=== PATIENT | female | born 1965 | race Caucasian/White ===

== ENCOUNTER → 2018-02-10 14:44 | Outpatient (CLI) | payer OTHER, SELFPAY ==
--- NOTE | 2018-02-10 | DI.MRI.S_ITS ---
PROCEDURE: MR KNEE LT WO CON INDICATIONS: CHRONIC LEFT KNEE PAIN TECHNIQUE: Noncontrast sagittal PD fast spin echo and T2 fast spin echo with fat saturation, sagittal 3-D FLASH with fat saturation; coronal T1 spin echo and PD fast spin echo with fat saturation, and axial PD fast spin echo with fat saturation through the knee. COMPARISON: [facility], CR, XR KNEE 3 VIEWS LEFT, 05/27/2015, 10:56. [facility], MR, MR KNEE LEFT WITHOUT CONTRAST, 07/06/2015, 15:21. [facility], MR, MR KNEE LEFT WITHOUT CONTRAST, 09/05/2015, 13:47. [facility] [place], CR, XR KNEE ARTHRITIC SERIES BI, 01/28/2018, 8:14. FINDINGS: Image quality: Excellent. Menisci: The medial and lateral menisci demonstrate normal morphology and internal signal. The meniscal root ligaments appear intact. Cruciate ligaments: The anterior and posterior cruciate ligaments appear intact. Medial structures: The medial collateral ligament appears intact. The posterior oblique ligament, semimembranosus tendon insertions, oblique popliteal ligament, and meniscocapsular junction appear intact. Visualized portions of the pes anserinus tendons appear normal. No abnormal bursal fluid. Lateral structures: The lateral collateral ligament, long and short heads of the biceps femoris tendon appear intact. The popliteus tendon appears normal; the popliteofibular ligament appears intact. The posterosuperior and anteroinferior popliteomeniscal fascicles appear intact. The arcuate and fabellofibular ligaments appear intact, on either side of the lateral inferior geniculate artery. Iliotibial band appears normal. Anterior structures: The quadriceps and patellar tendons appear intact. Patellar alignment is normal. No femoral trochlear dysplasia or ventral trochlear prominence. No edema in the infrapatellar fat pad. Bones and cartilage: No bone marrow contusions or fractures. There is a 6 x 5 mm full-thickness cartilage defect in the weightbearing portion of the lateral femoral condyle, which is new since 09/05/2015. Joint space: There is moderate knee joint effusion. No Ruggiero's cyst. Normal appearing synovial plicae are incidentally noted. IMPRESSION: 1. A 6 x 5 mm fullthicknes cartilage defect in the weightbearing portion of the lateral femoral condyle. 2. Moderate degree fusion. Dictated by: Maximo Chavez M.D. on 02/10/2018 at 15:21 Approved by: Maximo Chavez M.D. on 02/10/2018 at 15:31
== END ==
PROVIDERS: Visit Provider Orthopaedic Surgery
DX: M25.562 Pain in left knee (principal); G89.29 Other chronic pain; M25.462 Effusion, left knee; M94.262 Chondromalacia, left knee
CPT/HCPCS: 73721

== ENCOUNTER 2018-03-31 10:41 | Day surgery (SDC) | payer OTHER, SELFPAY ==
[2018-03-21 13:46] VITALS: BMI 48.5
[2018-03-31] VITALS (9 sets, daily range): BP systolic 102–118; BP diastolic 60–72; PULSE 74–93; RESP 10–16; TEMP 36.1–36.6; O2SAT 94–99; BMI 48.5
--- NOTE | 2018-03-31 | DI.RAD.S_ITS ---
PROCEDURE: XR LUMBAR SPINE 2-3V INDICATIONS: L4-5, L5-S1 MICRODISCECTOMY TECHNIQUE: 3 views of the lumbar spine were acquired. COMPARISON: None. FINDINGS: 3 spot fluoroscopic intraoperative views demonstrating surgical instrument with tip projecting at the L4-L5 at L5-S1 level. Dictated by: Josh Perry M.D. on 03/31/2018 at 14:22 Approved by: Josh Perry M.D. on 03/31/2018 at 14:23
[2018-03-31] MEDS: CEFAZOLIN 2 GM/100 ML FROZ.PIGGY IV (12:15)
--- NOTE | 2018-03-31 12:53 | SUR.OPER ---
Prone on spine table, head in foam head support, padded chest and pelvic supports, gel pad at knees, lower legs supported by pillows; nipples, genitalia and toes free of pressure, arms secured on foam padded arm boards at <90 degrees abduction. Tape over blanket at thigh secured to table.
[2018-03-31] MEDS: BUPIVACAINE 0.25% W/ EPI VIAL 30 ML INJ (13:03)
[2018-03-31] MEDS: methylPREDNISolone acet DEPO 40 MG/ML VIAL INJ (13:05)
--- NOTE | 2018-03-31 13:29 | PM.OP.1 ---
Operative Date/Time/Diagnoses Date of procedure: 03/31/18 Time of procedure: 12:29 Pre-op diagnosis: 1. L4-5, L5-S1 spinal stenosis 2. L4-5, L5-S1 disc herniation with radiculopathy Post-op diagnosis: same Procedure & Clinicians Procedure: 1. L4-5 hemilaminectomy with microdiscectomy 2. L5-S1 hemilaminectomy for decompression 3. Utilization of microsurgical technique and operating microscope Same procedure as scheduled: Yes Indications: Patient has been having chronic back pain and worsening lumbar radiculopathy. Patient failed multiple conservative management with worsening pain weakness and numbness in her lower extremity. Patient has been having difficulty performing activity of daily living. After discussing risks benefits of treatment options, patient elected proceed with surgery. Patient's procedure was originally scheduled for the right side. On the day of the surgery, patient states her left-sided pain is more significant. And the procedure was modified to accommodate patient's current symptom. Surgeon: Yaniv Brown [employer] Specialist: Krupa Summers Click Yes if Unassisted: No Anesthesia Type: General Operative Notes Closure Type: primary Specimen(s): none sent Estimated Blood Loss (mL): 10 Blood products transfused: none Procedure in detail: Patient was seen in the preoperative area. Risks and benefits of the surgery was discussed with the patient. Informed consent was obtained from the patient and placed in the chart. Surgical site was marked. Patient was taken to the operative room. General anesthesia was administered. Prophylactic antibiotic was given to the patient less than 30 min before the incision was made. Patient was placed into a prone position on the Miguel table. Patient's back was then prepped and draped in the sterile fashion. Time-out was performed at this time. Using AP and lateral C-arm imaging the interval between L4-5 L5-S1 was identified and marked on patient's back. A 1 inch incision 1 in from midline was made on the left side. The fascia was incised in line with skin incision. Globus MARS retractors was placed inside the incision and docked onto the L4 and L5 lamina. Using microsurgical technique and operating microscope, a L4 and L5 hemilaminectomy was performed using a Kerrison rongeur. Liagamentum flavum was resected at the site of the laminotomy. The disc space at L4-5, L5-S1 was identified. Microdiscectomy was performed by incising the annulus with #11 blade. Microcurettes and pituitary was used to removed herniated disc fragments of disc from the epidural space. After the microdiskectomy was completed, the area medial lateral superior and inferior to the area of the microdiskectomy was inspected and explored using a micro curette. No other impinging structure was identified. Patient was also found have significant epidural lipomatosis causing additional spinal stenosis. The lipomatosis was also removed and decompressed during the process of decompression at both levels. The wound was then irrigated with sterile normal saline. 40 mg Depo-Medrol was placed into the epidural space. The deep fascia was closed with 1-0 Vicryl. The subcutaneous tissue was closed with 2-0 Vicryl. The skin was closed with 4-0 Monocryl. Patient tolerated the procedure well. There were no complications. Patient was transferred recovery room in stable condition. Complications: none Condition: stable Disposition: PACU Plan for aftercare: Discharge to home
--- NOTE | 2018-03-31 13:36 | P.OP_ITS ---
Operative Date/Time/Diagnoses Date of procedure: 03/31/18 Time of procedure: 12:29 Pre-op diagnosis: 1. L4-5, L5-S1 spinal stenosis 2. L4-5, L5-S1 disc herniation with radiculopathy Post-op diagnosis: same Procedure & Clinicians Procedure: 1. L4-5 hemilaminectomy with microdiscectomy 2. L5-S1 hemilaminectomy for decompression 3. Utilization of microsurgical technique and operating microscope Same procedure as scheduled: Yes Indications: Patient has been having chronic back pain and worsening lumbar radiculopathy. Patient failed multiple conservative management with worsening pain weakness and numbness in her lower extremity. Patient has been having difficulty performing activity of daily living. After discussing risks benefits of treatment options, patient elected proceed with surgery. Patient's procedure was originally scheduled for the right side. On the day of the surgery, patient states her left-sided pain is more significant. And the procedure was modified to accommodate patient's current symptom. Surgeon: Yaniv Brown Engineering Clerk: Krupa Summers Click Yes if Unassisted: No Anesthesia Type: General Operative Notes Closure Type: primary Specimen(s): none sent Estimated Blood Loss (mL): 10 Blood products transfused: none Procedure in detail: Patient was seen in the preoperative area. Risks and benefits of the surgery was discussed with the patient. Informed consent was obtained from the patient and placed in the chart. Surgical site was marked. Patient was taken to the operative room. General anesthesia was administered. Prophylactic antibiotic was given to the patient less than 30 min before the incision was made. Patient was placed into a prone position on the Miguel table. Patient's back was then prepped and draped in the sterile fashion. Time- out was performed at this time. Using AP and lateral C-arm imaging the interval between L4-5 L5-S1 was identified and marked on patient's back. A 1 inch incision 1 in from midline was made on the left side. The fascia was incised in line with skin incision. Globus MARS retractors was placed inside the incision and docked onto the L4 and L5 lamina. Using microsurgical technique and operating microscope, a L4 and L5 hemilaminectomy was performed using a Kerrison rongeur. Liagamentum flavum was resected at the site of the laminotomy. The disc space at L4-5, L5- S1 was identified. Microdiscectomy was performed by incising the annulus with # 11 blade. Microcurettes and pituitary was used to removed herniated disc fragments of disc from the epidural space. After the microdiskectomy was completed, the area medial lateral superior and inferior to the area of the microdiskectomy was inspected and explored using a micro curette. No other impinging structure was identified. Patient was also found have significant epidural lipomatosis causing additional spinal stenosis. The lipomatosis was also removed and decompressed during the process of decompression at both levels. The wound was then irrigated with sterile normal saline. 40 mg Depo-Medrol was placed into the epidural space. The deep fascia was closed with 1-0 Vicryl. The subcutaneous tissue was closed with 2-0 Vicryl. The skin was closed with 4- 0 Monocryl. Patient tolerated the procedure well. There were no complications. Patient was transferred recovery room in stable condition. Complications: none Condition: stable Disposition: PACU Plan for aftercare: Discharge to home
[2018-03-31] MEDS: fentaNYL 100 MCG/2 ML INJ 50 MCG IV ×2 (13:59→14:07)
== END 2018-03-31 14:54 | disposition home or self-care (01) ==
PROVIDERS: Visit Provider Orthopaedic Surgery Orthopaedic Surgery of the Spine
PROC: (CPT 63030; principal; 2018-03-31 12:15)
DX: M51.16 Intervertebral disc disorders with radiculopathy, lumbar region (principal); E66.9 Obesity, unspecified; M79.7 Fibromyalgia; D64.9 Anemia, unspecified; E88.2 Lipomatosis, not elsewhere classified
CPT/HCPCS: 63030; 63035; 72100; 76001; J0330; J0690; J1030; J1100; J2250; J2405; J2704; J3010

== ENCOUNTER → 2018-06-21 15:49 | Outpatient (CLI) | payer OTHER, SELFPAY ==
--- NOTE | 2018-06-21 | DI.MRI.S_ITS ---
PROCEDURE: MR LUMBAR SPINE WO CON INDICATIONS: Low back and bilateral flank pain TECHNIQUE: Noncontrast sagittal T1 spin echo and T2 fast echo, sagittal STIR, axial T1 and T2 fast spin echo through the lumbar spine. In cases with scoliosis, additional coronal T2 fast spin echo may be performed. COMPARISON: [facility] [place], CR, XR LUMBAR SPINE 2 OR 3 VIEWS, 06/06/2018, 14:22. FINDINGS: Image quality: Excellent. Alignment and Curvature: There is trace retrolisthesis of L4 on L5. Bone Marrow: Marrow is of normal overall signal. No acute vertebral body compression fractures. Spinal Cord: Conus medullaris terminates at the L1-L2 level. Visualized cord demonstrates normal signal and size. Paraspinous Soft Tissues: No paravertebral masses. Discs: Moderate to severe desiccation is present L4-5, L5-S1, minimal to mild throughout the remainder of the lumbar spine. L1-L2: Minimal disc bulge without spinal stenosis. No foraminal narrowing. Mild facet and ligamentum flavum hypertrophy. Mild epidural lipomatosis. L2-L3: Minimal disc bulge with minimal canal narrowing. Mild left foraminal narrowing with facet and ligamentum flavum hypertrophy. Mild epidural lipomatosis. L3-L4: Mild disc bulge with mild spinal stenosis. Minimal bilateral foraminal narrowing with facet and ligamentum flavum hypertrophy. Mild epidural lipomatosis. L4-L5: Mild disc bulge with mild spinal stenosis. Minimal narrowing to the subarticular recesses bilaterally. Facet and ligamentum flavum hypertrophy are present. L5-S1: Mild disc bulge with mild to moderate spinal stenosis. Moderate left foraminal narrowing. Facet and ligamentum flavum hypertrophy are present. IMPRESSION: 1. Multilevel disc bulges. 2. Multilevel spinal stenosis overall mild to moderate posterior L5-S1. Spinal stenosis is secondary to facet/ligamentum flavum arthropathy with contribute effect of epidural lipomatosis. 3. Multilevel foraminal narrowing most prominent L5-S1 secondary to facet arthropathy. Dictated by: Ana Rosa Nieto M.D. on 06/21/2018 at 16:41 Approved by: Ana Rosa Nieto M.D. on 06/21/2018 at 16:49
== END ==
PROVIDERS: Visit Provider Physician Assistant
DX: M51.16 Intervertebral disc disorders with radiculopathy, lumbar region (principal); M51.17 Intervertebral disc disorders with radiculopathy, lumbosacral region; M48.061 Spinal stenosis, lumbar region without neurogenic claudication; M48.07 Spinal stenosis, lumbosacral region; M47.26 Other spondylosis with radiculopathy, lumbar region; M47.27 Other spondylosis with radiculopathy, lumbosacral region; E88.2 Lipomatosis, not elsewhere classified
CPT/HCPCS: 72148

== ENCOUNTER → 2018-11-08 08:26 | Outpatient (CLI) | payer OTHER, SELFPAY ==
[2018-11-08 09:48] LABS: Hematocrit 39.7 % (36-46); Hemoglobin 13.6 g/dL (12.0-16.0); Mean Corpuscular HGB Conc 34.3 % (30-36); Mean Corpuscular Hemoglobin 32.4 PG (26-34); Mean Corpuscular Volume 94.5 fL (80-100); Platelet Count 225 X10^3/uL (150-400); Red Cell Distribution Width 13.1 % (11.6-14.8); White Blood Cell Count 4.9 X10^3/uL (4.5-11.0)
[2018-11-08 12:11] LABS: BUN Creatinine Ratio 12.9 (6-22); Blood Urea Nitrogen 9 mg/dL (7-17); Calcium 9.4 mg/dL (8.4-10.2); Carbon Dioxide 27 mmol/L (22-32); Chloride 102 mmol/L (98-107); Estimated Glomerular Filt Rate > 60.0 mL/min (>60); Glucose 86 mg/dL (70-100); HEMOLYSIS < 15 (0-50); Potassium 4.5 mmol/L (3.4-5.1); Sodium 138 mmol/L (137-145)
== END ==
PROVIDERS: Visit Provider Orthopaedic Surgery Orthopaedic Surgery of the Spine
DX: Z01.818 Encounter for other preprocedural examination (principal)
CPT/HCPCS: 36415; 80048; 85027; 93005; 93010

== ENCOUNTER 2018-11-16 13:43 | Day surgery (SDC) | payer OTHER, SELFPAY ==
[2018-11-09 12:28] VITALS: BMI 48.5
[2018-11-16] VITALS (7 sets, daily range): BP systolic 107–116; BP diastolic 46–66; PULSE 75–96; RESP 10–16; TEMP 36.7–37.2; O2SAT 97–100; BMI 48.5
--- NOTE | 2018-11-16 | DI.RAD.S_ITS ---
PROCEDURE: XR LUMBAR SPINE 2-3V INDICATIONS: Microdiscectomy TECHNIQUE: 3 intraoperative views of the lumbar spine were acquired. COMPARISON: None. FINDINGS: Intraoperative views of the lumbar spine are obtained. IMPRESSION: Intraoperative views obtained of the lumbar spine. Dictated by: Gregory Martinez M.D. on 11/16/2018 at 18:44 Approved by: Gregory Martinez M.D. on 11/16/2018 at 18:46
[2018-11-16] MEDS: LACTATED RINGERS 1,000 ML 42 ML IV (14:41)
[2018-11-16] MEDS: CEFAZOLIN 2 GM/100 ML FROZ.PIGGY IV (17:12)
[2018-11-16] MEDS: BUPIVACAINE 0.25% W/ EPI 30 ML VIAL INJ (17:46)
[2018-11-16] MEDS: methylPREDNISolone acet DEPO 40 MG/ML VIAL IM (17:47)
--- NOTE | 2018-11-16 18:08 | PM.OP.1 ---
Operative Date/Time/Diagnoses Date of procedure: 11/16/18 Time of procedure: 16:09 Pre-op diagnosis: 1. L5-S1 spinal stenosis 2. L5-S1 disc herniation with radiculopathy Post-op diagnosis: same Procedure & Clinicians Procedure: 1. L5-S1 laminectomy with partial facetectomy for decompression 2. Utilization of microsurgical technique and operating microscope Same procedure as scheduled: Yes Indications: Patient has been having chronic back pain and worsening lumbar radiculopathy. Patient failed multiple conservative management with worsening pain weakness and numbness in her lower extremity. Patient has been having difficulty performing activity of daily living. After discussing risks benefits of treatment options, patient elected proceed with surgery. Surgeon: Yaniv Brwon Certified Court/Medical Interpreter: Krupa Summers Click Yes if Unassisted: No Anesthesia Type: General Operative Notes Closure Type: primary Specimen(s): none sent Estimated Blood Loss (mL): 5 Blood products transfused: none Procedure in detail: Patient was seen in the preoperative area. Risks and benefits of the surgery was discussed with the patient. Informed consent was obtained from the patient and placed in the chart. Surgical site was marked. Patient was taken to the operative room. General anesthesia was administered. Prophylactic antibiotic was given to the patient less than 30 min before the incision was made. Patient was placed into a prone position on the Miguel table. Patient's back was then prepped and draped in the sterile fashion. Time-out was performed at this time. Using AP and lateral C-arm imaging the interval between L5-S1 was identified and marked on patient's back. A 1 inch incision 1 in from midline was made on the left side. The fascia was incised in line with skin incision. Globus MARS retractors was placed inside the incision and docked onto the L5 lamina. Using microsurgical technique and operating microscope, a L5-S1 laminectomy was performed using a Kerrison rongeur. Liagamentum flavum was resected at the site of the laminectotmy. Part of the L5-S1 facet was undercut to further decompress the lateral recess at L5-S1 level. After the laminectomy was completed, the area medial lateral superior and inferior to the area of the laminectomy was inspected and explored using a micro curette. No other impinging structure was identified. The wound was then irrigated with sterile normal saline. 40 mg Depo-Medrol was placed into the epidural space. The deep fascia was closed with 1-0 Vicryl. The subcutaneous tissue was closed with 2-0 Vicryl. The skin was closed with Skin robert. Patient tolerated the procedure well. There were no complications. Patient was transferred recovery room in stable condition. Complications: none Condition: stable Disposition: PACU Plan for aftercare: Discharge to home
== END 2018-11-16 19:11 | disposition home or self-care (01) ==
PROVIDERS: PCP Family Medicine; Visit Provider Orthopaedic Surgery Orthopaedic Surgery of the Spine
PROC: (CPT 63047; principal; 2018-11-16 15:45)
DX: M48.061 Spinal stenosis, lumbar region without neurogenic claudication (principal); M51.16 Intervertebral disc disorders with radiculopathy, lumbar region; E66.9 Obesity, unspecified; M79.7 Fibromyalgia; D64.9 Anemia, unspecified; Z68.42 Body mass index [BMI] 45.0-49.9, adult
CPT/HCPCS: 63047; 72100; 76000; J0690; J1030; J1100; J2405; J2704; J3010

== ENCOUNTER → 2019-01-02 07:41 | Outpatient (CLI) | payer OTHER, SELFPAY ==
--- NOTE | 2019-01-02 | DI.MRI.S_ITS ---
PROCEDURE: MR LUMBAR SPINE WO CON INDICATIONS: LOW BACK PAIN TECHNIQUE: Noncontrast sagittal T1 spin echo and T2 fast echo, sagittal STIR, axial T1 and T2 fast spin echo through the lumbar spine. In cases with scoliosis, additional coronal T2 fast spin echo may be performed. COMPARISON: [facility], MR, MR LUMBAR SPINE WO CON, 06/21/2018, 15:58. FINDINGS: Image quality: Excellent. Alignment and Curvature: There is normal bony alignment. Bone Marrow: Marrow is of normal overall signal. No acute vertebral body compression fractures. Spinal Cord: Conus medullaris terminates at the L1 level. Visualized cord demonstrates normal signal and size. Paraspinous Soft Tissues: No paravertebral masses. There is nonspecific, dependent posterior subcutaneous soft tissue edema from level of L2-L5 L1-L2: Normal appearance. L2-L3: Normal appearance. L3-L4: Normal appearance. L4-L5: Small central disc protrusion bilateral facet arthropathy. No high-grade canal stenosis. Partial effacement of both lateral recesses although right slightly greater than left. This is slightly progressed since the prior study, and there is mild compression of the descending right L5 nerve root. L5-S1: Broad-based posterior disc bulge and facet arthropathy. Mild canal narrowing. Lateral recesses appear grossly patent. Moderate left foraminal narrowing which is grossly unchanged. IMPRESSION: Lower lumbar spondylosis and facet arthropathy. No high-grade canal stenosis. Asymmetric mild partial effacement of the L4-L5 lateral recesses, right slightly greater than left which appears slightly progressed since the prior study. Moderate left L5-S1 foraminal stenosis as before. Dictated by: Josh Perry M.D. on 01/02/2019 at 13:20 Approved by: Josh Perry M.D. on 01/02/2019 at 13:28
== END ==
PROVIDERS: PCP Family Medicine; Visit Provider Orthopaedic Surgery Orthopaedic Surgery of the Spine
DX: M54.5 Low back pain (principal); M47.816 Spondylosis without myelopathy or radiculopathy, lumbar region; M48.07 Spinal stenosis, lumbosacral region
CPT/HCPCS: 72148

== ENCOUNTER → 2020-11-26 07:15 | Outpatient (CLI) | payer OTHER, SELFPAY ==
--- NOTE | 2020-11-26 | DI.MRI.S_ITS ---
PROCEDURE: MR LUMBAR SPINE WO CON INDICATIONS: Low back pain TECHNIQUE: Noncontrast sagittal T1 spin echo and T2 fast echo, sagittal STIR, axial T1 and T2 fast spin echo through the lumbar spine. In cases with scoliosis, additional coronal T2 fast spin echo may be performed. COMPARISON: [facility], MR, MR LUMBAR SPINE WO CON, 01/02/2019, 7:57. FINDINGS: Image quality: Excellent. Alignment and Curvature: There is normal bony alignment. Bone Marrow: Marrow is of normal overall signal. No acute vertebral body compression fractures. Spinal Cord: Conus medullaris terminates at the L1 level. Visualized cord demonstrates normal signal. There is an overall appearance of congenital narrowing. Paraspinous Soft Tissues: No paravertebral masses. Discs: Moderate desiccation is present at L4-5, L5-S1. L1-L2: No disc bulge or foraminal narrowing. Mild spinal stenosis with facet and ligamentum flavum hypertrophy. Minimal epidural lipomatosis. No interval change. L2-L3: No disc bulge. Questionable minimal left foraminal narrowing, unchanged. Facet and ligamentum flavum hypertrophy as well as epidural lipomatosis are present. Mild spinal stenosis. L3-L4: Minimal disc bulge. Questionable minimal left foraminal narrowing, unchanged. Facet and ligamentum flavum hypertrophy as well as epidural lipomatosis are present. Moderate spinal stenosis, slightly progressive. L4-L5: Minimal disc bulge. Previous protrusion is not well seen. Questionable minimal left foraminal narrowing, unchanged. Facet and ligamentum flavum hypertrophy as well as epidural lipomatosis are present. Moderate spinal stenosis, slightly progressive. L5-S1: Minimal disc bulge. Previous protrusion is not well seen. Moderate left foraminal narrowing, unchanged. Facet and ligamentum flavum hypertrophy as well as epidural lipomatosis are present. Mild to moderate spinal stenosis, slightly progressive. IMPRESSION: 1. Multilevel degenerative changes with slight interval progression, as above. 2. 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 Dictated by: Ana Rosa Nieto M.D. on 11/26/2020 at 16:52 Approved by: Ana Rosa Nieto M.D. on 11/26/2020 at 17:14
== END ==
PROVIDERS: PCP Student in an Organized Health Care Education/Training Program; Referring Provider Student in an Organized Health Care Education/Training Program; Visit Provider Student in an Organized Health Care Education/Training Program
DX: M51.26 Other intervertebral disc displacement, lumbar region (principal); M48.061 Spinal stenosis, lumbar region without neurogenic claudication
CPT/HCPCS: 72148

== ENCOUNTER 2021-01-04 15:00 | Emergency (ER) | payer OTHER, SELFPAY ==
[2021-01-04 15:25] VITALS: BP 123/65; PULSE 84; RESP 18; TEMP 36.2; O2SAT 98; BMI 53.1
--- NOTE | 2021-01-04 15:39 | DI.RAD.S_ITS ---
PROCEDURE: XR CHEST 1V INDICATIONS: chest pain TECHNIQUE: One view of the chest was acquired. COMPARISON: [facility], , CHEST 2 VIEW, 07/28/2008, 20:00. FINDINGS: Surgical changes and devices: None. Lungs and pleura: Lungs are clear. No pleural effusions or pneumothorax. Mediastinum: Mediastinal contours appear normal. Heart size is normal. Bones and chest wall: No suspicious bony lesions. Overlying soft tissues appear unremarkable. IMPRESSION: Normal for age, source of current chest pain symptoms is not seen. Dictated by: Ronny Mac M.D. on 01/04/2021 at 15:26 Approved by: Ronny Mac M.D. on 01/04/2021 at 15:27
[2021-01-04 16:32] LABS: Add Manual Diff / Slide Review NO; Basophils Absolute Auto 100 /uL (0-100); Basophils Percent Auto 1.5 % (0-2); Eosinophils Absolute Auto 200 /uL (0-450); Eosinophils Percent Auto 3.2 % (2-4); Hematocrit 37.2 % (36-46); Hemoglobin 12.5 g/dL (12.0-16.0); Lymphocytes Absolute Auto 1500 /uL (1100-4500); Lymphocytes Percent Auto 26.3 % (25-40); Mean Corpuscular HGB Conc 33.5 % (30-36); Mean Corpuscular Hemoglobin 31.8 PG (26-34); Mean Corpuscular Volume 95.1 fL (80-100); Monocytes Absolute Auto 500 /uL (0-900); Monocytes Percent Auto 8.8 % (3-14); Neutrophils Absolute Auto 3400 /uL (1500-7000); Neutrophils Percent Auto 60.2 % (50-75); Platelet Count 243 X10^3/uL (150-400); Red Blood Cell Count 3.91 X10^6/uL (4.0-5.2); Red Cell Distribution Width 13.9 % (11.6-14.8); White Blood Cell Count 5.6 X10^3/uL (4.5-11.0)
[2021-01-04 16:43] LABS: Alanine Aminotransferase 18 IU/L (<35); Albumin 4.2 g/dL (3.5-5.0); Albumin Globulin Ratio 1.3 (1.0-2.8); Alkaline Phosphatase 79 U/L (38-126); Aspartate Aminotransferase 27 IU/L (14-36); BUN Creatinine Ratio 22.4 (6-22); Bilirubin Total 0.8 mg/dL (0.2-1.3); Blood Urea Nitrogen 13 mg/dL (7-17); Calcium 9.4 mg/dL (8.4-10.2); Carbon Dioxide 28 mmol/L (22-32); Chloride 104 mmol/L (98-107); Creatine Kinase 117 U/L (30-135); Estimated Glomerular Filt Rate > 60.0 mL/min (>60); Globulin 3.2 g/dL (1.7-4.1); Glucose 87 mg/dL (70-100); HEMOLYSIS 34 (0-50); Lipase 24 U/L (23-300); Potassium 4.1 mmol/L (3.4-5.1); Sodium 137 mmol/L (137-145); Total Protein 7.4 g/dL (6.3-8.2)
--- NOTE | 2021-01-04 16:50 | ED_ITS ---
HPI - Extremity Problem General Chief complaint: Extremity Problem,Nontraumatic Stated complaint: swollen feet and legs/ painful Time Seen by Provider: 01/04/21 16:20 Source: patient Mode of arrival: Ambulatory Limitations: no limitations History of Present Illness HPI Narrative: Patient is a 55-year-old female here for evaluation of bilateral with left being greater than right swollen feet and ankles. She states this is been going on for the past couple days. She is not having any chest pain or shortness of breath. Has never had anything like this in the past. She states that they are swollen all day long even in the morning after she has been lying flat. She denies any trauma. She started noticing swelling when she was having difficulty putting on a pair shoes that she normally wears. No fevers. Has not tried anything for symptoms prior to arrival. Related Data Home Medications Medication Instructions Recorded Confirmed CHOLECALCIFEROL (VITAMIN D3) 1,000 mg PO DAILY #0 07/28/08 11/16/18 (Vitamin D3) Esomeprazole Magnesium (Nexium) 40 mg PO Q DAY #0 07/28/08 11/16/18 [MYLANTA] 30 ml PO DAILY PRN #0 07/28/08 11/16/18 Excedrin Extra Strength 1 tab PO DAILY 03/21/18 11/16/18 acetaminophen [Tylenol] 325 mg PO DAILY PRN 03/21/18 11/16/18 Previous Rx's Medication Instructions Recorded furosemide [Lasix] 20 mg PO DAILY #14 tab 01/04/21 Allergies Allergy/AdvReac Type Severity Reaction Status Date / Time ibuprofen [IBUPROFEN] AdvReac Intermediate pain in Verified 01/04/21 15:25 lower back Review of Systems Constitutional Constitutional: Denies fever(s) and Denies headache(s) ENT Ears, Nose, Mouth, and Throat: Denies headache(s) Cardiovascular Cardiovascular: Denies chest pain and Denies dyspnea Respiratory Respiratory: Denies dyspnea Gastrointestinal Gastrointestinal: Denies abdominal pain, Denies nausea and Denies vomiting Genitourinary Genitourinary: Denies dysuria Genitourinary: Denies dysuria Musculoskeletal Comments: Lower extremity swelling Integumentary/Breasts Skin/Breast: Denies rash Neurologic Neurologic: Denies behavioral changes and Denies headache(s) Psychiatric Psychiatric: Denies behavioral changes Hematologic/Lymphatic On Anticoagulants: No Allergic/Immunologic Allergic/Immunologic: Reports system reviewed and no additional complaints, except as documented Patient History Medical History Anemia Fibromyalgia History of migraine headaches Low back pain Lumbar disc prolapse with compression radiculopathy Morbid obesity with BMI of 45.0-49.9, adult Sinus bradycardia Surgical History (System 01/02/19 @ 08:11 by Divina Perez) H/O: History of ankle surgery History of colonoscopy Hx of microdiscectomy (03/31/18) S/P arthroscopy of right shoulder S/P left knee arthroscopy Social History household members: spouse Smoking Status: Never smoker alcohol intake: current Smoking Status: Never smoker alcohol intake frequency: holidays/special occasions only Substance Use Type: does not use Exam Initial Vital Signs Initial Vital Signs: Vital Signs Temperature 97.1 F L 01/04/21 15:25 Pulse Rate 84 01/04/21 15:25 Respiratory Rate 18 01/04/21 15:25 Blood Pressure 123/65 01/04/21 15:25 Pulse Oximetry 98 01/04/21 15:25 Const General: cooperative and comfortable Limitations: mental status not altered HENPR Head: normal to inspection and normocephalic Eyes General: appearance normal, both eyes and all related structures Neck Neck: normal visual inspection Chest Chest: normal inspection of the chest Resp Effort & Inspection: normal respiratory effort Auscultation: clear to auscultation bilaterally Cardio Rate: regular rate Rhythm: regular rhythm GI Inspection: non-distended Palpation: soft Skin Lesions: no lesions Rashes: no rashes Other: Minimal lower extremity redness Neuro General: patient alert and patient awake Cognition: normal cognition Speech: speech normal Extrem General: normal to inspection, capillary refill normal and edema Other: Patient does have bilateral lower extremity edema. The left does seem to be greater than the right. It is from her toes to just above her calf. It is nonpitting. Psych Appearance: grossly normal and well kempt Scores Wells' Criteria for DVT Active Cancer (Treatment within 6 months): No Bedridden recently >3 days or major surgery within 4 weeks: No Calf Swelling >3cm compared to other leg: No Collateral (nonvericose) superficial veins present: No Entire leg swollen: No Localized tenderness along the deep vein system: No Pitting edema, confined to symtomatic leg: No Paralysis, paresis, or recent plaster immobilization of ext: No Previously documented DVT: No Alternative dx to DVT as likely or more likely: Yes Wells' criteria for DVT: -2 Course Orders Ordered: ED Orders 01/04/21 15:39 XR chest 1V Stat EKG-12 Lead Stat 01/04/21 16:18 BNP [NT-proBNP (BNP-Adult 18+)] Stat Complete Blood Count AUTO DIFF Stat Comprehensive Metabolic Panel Stat Lipase Stat Troponin & CK Cardiac Panel Stat Discontinued Medications Furosemide (Furosemide 40 Mg/4 Ml Vial) 40 mg IV NOW ONE Stop: 01/04/21 17:20 Last Admin: 01/04/21 17:28 Dose: 40 mg Documented by: STANLEY Vital Signs Vital signs: Vital Signs - 8 hr 01/04/21 15:25 Temperature 97.1 F L Pulse Rate 84 Respiratory Rate 18 Blood Pressure 123/65 Pulse Oximetry 98 MDM - Extremity (Nontraumatic) Lab Data Result diagrams: 01/04/21 16:18 01/04/21 16:18 Labs: Lab Results 01/04/21 01/04/21 Range/Units 16:18 16:18 WBC 5.6 (4.5-11.0) X10^3/uL RBC 3.91 L (4.0-5.2) X10^6/uL Hgb 12.5 (12.0-16.0) g/dL Hct 37.2 (36-46) % MCV 95.1 (80-100) fL MCH 31.8 (26-34) PG MCHC 33.5 (30-36) % RDW 13.9 (11.6-14.8) % Plt Count 243 (150-400) X10^3/uL Neut % (Auto) 60.2 (50-75) % Lymph % (Auto) 26.3 (25-40) % Amelia % (Auto) 8.8 (3-14) % Eos % (Auto) 3.2 (2-4) % Baso % (Auto) 1.5 (0-2) % Neut # (Auto) 3400 (0143-0406) /uL Lymph # (Auto) 1500 (8963-3633) /uL Amelia # (Auto) 500 (0-900) /uL Eos # (Auto) 200 (0-450) /uL Baso # (Auto) 100 (0-100) /uL Sodium 137 (137-145) mmol/L Potassium 4.1 (3.4-5.1) mmol/L Chloride 104 (98-107) mmol/L Carbon Dioxide 28 (22-32) mmol/L BUN 13 (7-17) mg/dL Creatinine 0.58 (0.52-1.04) mg/dL Estimated GFR > 60.0 (>60) mL/min BUN/Creatinine Ratio 22.4 H (6-22) Glucose 87 (70-100) mg/dL Calcium 9.4 (8.4-10.2) mg/dL Total Bilirubin 0.8 (0.2-1.3) mg/dL AST 27 (14-36) IU/L ALT 18 (<35) IU/L Alkaline Phosphatase 79 (38-126) U/L Total Creatine Kinase 117 (30-135) U/L CK-MB (CK-2) 0.60 (<2.37) ng/mL CK-MB (CK-2) Rel Index 0.5 L (1.5-5.0) % Troponin I < 0.012 (0.01-0.034) ng/mL NT-Pro-B Natriuret Pep 35 (<125) pg/mL Total Protein 7.4 (6.3-8.2) g/dL Albumin 4.2 (3.5-5.0) g/dL Globulin 3.2 (1.7-4.1) g/dL Albumin/Globulin Ratio 1.3 (1.0-2.8) Lipase 24 (23-300) U/L Imaging Data Chest x-ray: Radiologist's Impression: [address] [id number] ReportSigned Patient: Edith Loyd LMR#: [id number]: [id number]:[id number]/Sex: 55 / FDate of Service: 01/04/21Loc: EDAccession Number: [id number] Procedure: XR chest 1V Ordering Provider: Kamran Norton D.O. PROCEDURE: XR CHEST 1V INDICATIONS: chest pain TECHNIQUE: One view of the chest was acquired. COMPARISON: [facility], , CHEST 2 VIEW, 07/28/2008, 20:00. FINDINGS: Surgical changes and devices: None. Lungs and pleura: Lungs are clear. No pleural effusions or pneumothorax. Mediastinum: Mediastinal contours appear normal. Heart size is normal. Bones and chest wall: No suspicious bony lesions. Overlying soft tissues appear unremarkable. IMPRESSION: Normal for age, source of current chest pain symptoms is not seen. Dictated by: Ronny Mac M.D. on 01/04/2021 at 15:26 Approved by: Ronny Mac M.D. on 01/04/2021 at 15:27 ECG Data Attestation EKG: I personally reviewed and interpreted this ECG as follows: Prior ECG tracings: not available for review Interpretation: Sinus rhythm Ventricular rate is 62 Normal axis Normal QRS Normal QTC No ST T wave changes MDM Narrative Medical decision making narrative: Patient is low risk for DVT given the well's score. She does have bilateral swelling. Low suspicion for trauma. Low suspicion for infection given her presentation. Kidney functions unremarkable. EKG and chest x-ray shows no signs of heart failure. Unsure the exact etiology however the plan will be is to start her on diuretics. She was instructed that she need to contact her primary doctor at the beginning of the next week to schedule follow-up to discuss further workup especially of her symptoms do not improve. She was given return precautions and follow-up instructions. She expressed understanding and agreement. Discharge Plan Departure Patient Disposition: Home Clinical Impression: Bilateral lower extremity edema Instructions: DI for Peripheral Edema -- Bilateral Activity Restrictions/Additional Instructions: I recommend that you start taking the Lasix/furosemide as directed. On Wednesday contact your primary provider for a follow-up. Return to the emergency department for any new or worsening symptoms Prescriptions: New furosemide [Lasix] 20 mg tablet 20 mg PO DAILY Qty: 14 RF: 0 No Action CHOLECALCIFEROL (VITAMIN D3) (Vitamin D3) 1,000 mg PO DAILY Qty: 0 RF: 0 Esomeprazole Magnesium (Nexium) 40 mg PO Q DAY Qty: 0 RF: 0 [MYLANTA] 30 ml PO DAILY PRN (Reason: Indigestion) Qty: 0 RF: 0 acetaminophen [Tylenol] 325 mg Tablet 325 mg PO DAILY PRN (Reason: Pain) RF: 0 Excedrin Extra Strength 250-250-65 mg Tablet 1 tab PO DAILY RF: 0 Referrals: Azam Taylor DO [Primary Care Provider] -
[2021-01-04 16:55] LABS: NT-proBNP (BNP-Adult 18+) 35 pg/mL (<125); Troponin I < 0.012 ng/mL (0.01-0.034)
[2021-01-04 16:58] LABS: CKMB % Relative Index 0.5 % (1.5-5.0)
[2021-01-04] MEDS: FUROSEMIDE 40 MG/4 ML VIAL IV (17:28)
[2021-01-04 18:08] VITALS: BP 123/60; PULSE 78; RESP 18; O2SAT 98
== END 2021-01-04 18:08 | disposition home or self-care (01) ==
PROVIDERS: Emergency Provider Emergency Medicine; PCP Student in an Organized Health Care Education/Training Program
DX: R60.0 Localized edema (principal); R07.9 Chest pain, unspecified
CPT/HCPCS: 36415; 71045; 80053; 82550; 82553; 83690; 83880; 84484; 85025; 93005; 96374; 99284; J1940

== ENCOUNTER 2022-09-27 14:12 | Emergency (ER) | payer OTHER, SELFPAY ==
[2022-09-27 14:29] VITALS: BP 138/86; PULSE 80; RESP 18; TEMP 36.3; O2SAT 97; BMI 53.1
--- NOTE | 2022-09-27 14:40 | DI.US.S_ITS ---
PROCEDURE: US ABDOMEN LIMITED INDICATIONS: RUQ pain, r/o anselmo TECHNIQUE: Real-time scanning was performed of the abdominal and retroperitoneal organs, with image documentation. COMPARISON: None. FINDINGS: Liver: Hepatic parenchyma shows diffuse increased echogenicity consistent with fatty infiltration. Gallbladder: Sonolucent without cholelithiasis. No gallbladder wall thickening. No pericholecystic fluid or Caro's sign. Common Bile Duct: 5.5 mm. Pancreas: Unremarkable as visualized IMPRESSION: 1. Hepatic fatty infiltration without focal mass lesion Approved by: Adama Mccallum M.D. on 09/27/2022 at 14:45
[2022-09-27 15:19] LABS: Add Manual Diff / Slide Review NO; Basophils Absolute Auto 100 /uL (0-100); Basophils Percent Auto 1.2 % (0-2); Eosinophils Absolute Auto 200 /uL (0-450); Hematocrit 37.9 % (36-46); Hemoglobin 12.7 g/dL (12.0-16.0); Lymphocytes Absolute Auto 1800 /uL (1100-4500); Lymphocytes Percent Auto 32.2 % (25-40); Mean Corpuscular HGB Conc 33.5 % (30-36); Mean Corpuscular Hemoglobin 31.4 PG (26-34); Mean Corpuscular Volume 93.9 fL (80-100); Monocytes Absolute Auto 500 /uL (0-900); Monocytes Percent Auto 9.2 % (3-14); Neutrophils Absolute Auto 3000 /uL (1500-7000); Neutrophils Percent Auto 54.4 % (50-75); Platelet Count 262 X10^3/uL (150-400); Red Blood Cell Count 4.04 X10^6/uL (4.0-5.2); Red Cell Distribution Width 13.3 % (11.6-14.8); White Blood Cell Count 5.5 X10^3/uL (4.5-11.0)
[2022-09-27 15:28] LABS: Alanine Aminotransferase 30 IU/L (<35); Albumin Globulin Ratio 1.3 (1.0-2.8); Alkaline Phosphatase 102 U/L (38-126); Aspartate Aminotransferase 23 IU/L (14-36); BUN Creatinine Ratio 13.7 (6-22); Bilirubin Total 0.7 mg/dL (0.2-1.3); Blood Urea Nitrogen 7 mg/dL (7-17); Calcium 8.6 mg/dL (8.4-10.2); Carbon Dioxide 23 mmol/L (22-32); Chloride 104 mmol/L (98-107); Estimated Glomerular Filt Rate > 60 mL/min (>60); Globulin 3.2 g/dL (1.7-4.1); Glucose 80 mg/dL (70-100); HEMOLYSIS 18 (0-50); Lipase 28 U/L (23-300); Potassium 4.1 mmol/L (3.4-5.1); Sodium 137 mmol/L (137-145); Total Protein 7.2 g/dL (6.3-8.2)
--- NOTE | 2022-09-27 18:19 | DI.CT.S_ITS ---
PROCEDURE: CT ABDOMEN PELVIS W CON INDICATIONS: Right upper quadrant tenderness concerning for anselmo w/sx TECHNIQUE: After the administration of intravenous contrast, axial sections acquired from the lung bases to the pubic symphysis. Coronal and sagittal reformats were performed. For radiation dose reduction, the following was used: automated exposure control, adjustment of mA and/or kV according to patient size. COMPARISON: [facility], , ABDOMEN LIMITED, 09/27/2022, 15:20. FINDINGS: Image quality: Excellent. Lung bases: Unremarkable. Heart: No significant findings. ABDOMEN: Liver: Unremarkable. Gallbladder: Unremarkable. Biliary ducts: Unremarkable. Pancreas: Unremarkable. Spleen: Unremarkable. Adrenal Glands: Unremarkable. Kidneys and Ureters: Unremarkable. Stomach and Bowel: Stomach, small bowel loops, and colon are unremarkable. Peritoneum: No abnormal intraperitoneal fluid. No free air. Ventral Wall: No hernias. Abdominal Nodes: No retroperitoneal or mesenteric adenopathy by size criteria. Vessels: Aorta and inferior vena cava are normal in size. PELVIS: Pelvic Organs: Unremarkable. Bladder: Unremarkable. Pelvic Nodes: No enlarged lymph nodes. Miscellaneous: No hernias are seen. Bones: Unremarkable. IMPRESSION: No evidence acute abdominal process. Dictated by: Ghassan Smith M.D. on 09/27/2022 at 18:50 Approved by: Ghassan Smith M.D. on 09/27/2022 at 18:52
--- NOTE | 2022-09-27 18:25 | ED_ITS ---
HPI - Abdominal Pain <TRI Huang - Last Filed: 09/27/22 19:56> General Chief Complaint: Abdominal Pain Stated Complaint: Shoulder pain, abd pain, says gallbladder Time Seen by Provider: 09/27/22 17:58 Source: patient Mode of arrival: Family Vehicle History of Present Illness HPI narrative: This is a 57-year-old female who presents to the emergency department if sure she states she had a meal with more fat content than usual, followed by right upper quadrant pain, tenderness, nausea without vomiting, and now with referred shoulder pain. She states that she had an oily stool last night, has had wor sening pain today. Denies any blood in her stool dysuria, urinary frequency or urgency. She thinks that her pain is referred her right shoulder, denies any rash, states that she has history of edema to her lower extremities and takes Lasix for this, states that she is allergic to ibuprofen. Denies history of GI bleeding. Endorses nausea without vomiting, endorses chills, occasional rhinorrhea and congestion. Denies vomiting, denies diarrhea or bowel changes today but states that she had loose, oily stool yesterday x1.. Related Data Home Medications Medication Instructions Recorded Confirmed CHOLECALCIFEROL (VITAMIN D3) 1,000 mg PO DAILY ##0 07/28/08 11/16/18 (Vitamin D3) Esomeprazole Magnesium (Nexium) 40 mg PO Q DAY ##0 07/28/08 11/16/18 [MYLANTA] 30 ml PO DAILY PRN Indigestion ##0 07/28/08 11/16/18 acetaminophen 325 mg tablet 325 mg PO DAILY PRN Pain 03/21/18 11/16/18 (Tylenol) [id number] 250 1 tab PO DAILY 03/21/18 11/16/18 mg-250 mg-65 mg tablet (Excedrin Extra Strength) Previous Rx's Medication Instructions Recorded furosemide 20 mg tablet (Lasix) 20 mg PO DAILY #14 tabs 01/04/21 ondansetron 4 mg disintegrating 4 mg PO Q8H PRN nausea and 09/27/22 tablet vomiting #10 tabs Allergies Allergy/AdvReac Type Severity Reaction Status Date / Time ibuprofen [IBUPROFEN] AdvReac Intermediate pain in Verified 01/04/21 15:25 lower back Review of Systems <TRI Huang - Last Filed: 09/27/22 19:56> Review of Systems ROS Unobtainable: All systems reviewed & are unremarkable except as noted in HPI and below Patient History <TRI Huang - Last Filed: 09/27/22 19:56> Medical History Anemia Fibromyalgia History of migraine headaches Low back pain Lumbar disc prolapse with compression radiculopathy Morbid obesity with BMI of 45.0-49.9, adult Sinus bradycardia Surgical History H/O: History of ankle surgery History of colonoscopy Hx of microdiscectomy (03/31/18) S/P arthroscopy of right shoulder S/P left knee arthroscopy Social History household members: spouse Smoking Status: Never smoker alcohol intake: current Smoking Status: Never smoker alcohol intake frequency: holidays/special occasions only Substance Use Type: does not use Exam <TRI Huang - Last Filed: 09/27/22 19:56> Narrative Exam Narrative: Reviewed vitals signs and nursing notes. General: cooperative, comfortable, in no acute distress, well groomed HEENT: symmetrical facial expressions, moist mucous membranes Cardiovascular: regular rate and rhythm, no peripheral edema, warm extremities Respiratory: normal effort, able to speak in complete sentences, without wheezing, stridor, or abnormal breath sounds. No retractions or tachypnea. GI: abdomen soft, mild tenderness to palpation to the right upper quadrant with deep inspiration, tenderness to the right posterior shoulder/thoracic region over the soft tissue, tender over the musculature specifically, nontender over cervical and thoracic spine, abdomen is nondistended, without masses, rebound tenderness or exquisite tenderness with exam. MSK: moves all extremities, neurovascularly intact, no weakness, normal tone Skin: brisk capillary refill, without pallor or erythema Neuro: normal speech and cognition, A&O x3, ambulatory, clear speech Psych: mental status is grossly normal, congruent mood, normal affect, pleasant and cooperative Initial Vital Signs Initial Vital Signs: Vital Signs Temperature 97.4 F L 09/27/22 14:29 Pulse Rate 80 09/27/22 14:29 Respiratory Rate 18 09/27/22 14:29 Blood Pressure 138/86 09/27/22 14:29 Pulse Oximetry 97 09/27/22 14:29 Oxygen Delivery Method Room Air 09/27/22 14:29 <Mile Osborn DO - Last Filed: 10/05/22 08:25> Initial Vital Signs Initial Vital Signs: Vital Signs Temperature 97.4 F L 09/27/22 14:29 Pulse Rate 80 09/27/22 14:29 Respiratory Rate 18 09/27/22 14:29 Blood Pressure 138/86 09/27/22 14:29 Pulse Oximetry 97 09/27/22 14:29 Oxygen Delivery Method Room Air 09/27/22 14:29 Course <TRI Huang - Last Filed: 09/27/22 19:56> Orders Ordered: Discontinued Medications Hydromorphone HCl (Hydromorphone 0.5 Mg Inj) 0.5 mg IV NOW ONE Stop: 09/27/22 18:21 Last Admin: 09/27/22 18:54 Dose: 0.5 mg Documented By: JANE Ketorolac Tromethamine (Ketorolac 30 Mg/Ml Vial) 15 mg IV NOW ONE Stop: 09/27/22 18:22 Last Admin: 09/27/22 18:54 Dose: 15 mg Documented By: JANE Ondansetron HCl (Ondansetron 4 Mg Odt) 4 mg PO NOW PRN PRN Reason: Nausea And Vomiting Ondansetron HCl (Ondansetron 4 Mg/2 Ml Inj) 4 mg IV NOW PRN PRN Reason: Nausea And Vomiting Pantoprazole Sodium (Pantoprazole 40 Mg Vial) 20 mg IV NOW ONE Stop: 09/27/22 18:22 Last Admin: 09/27/22 18:54 Dose: Not Given Documented By: JANE Vital Signs Vital signs: Vital Signs - 8 hr 09/27/22 14:29 09/27/22 19:49 Temperature 97.4 F L 98.6 F Pulse Rate 80 Respiratory Rate 18 Blood Pressure 138/86 Pulse Oximetry 97 Oxygen Delivery Method Room Air <Mile Osborn DO - Last Filed: 10/05/22 08:25> Orders Ordered: Discontinued Medications Hydromorphone HCl (Hydromorphone 0.5 Mg Inj) 0.5 mg IV NOW ONE Stop: 09/27/22 18:21 Last Admin: 09/27/22 18:54 Dose: 0.5 mg Documented By: JANE Ketorolac Tromethamine (Ketorolac 30 Mg/Ml Vial) 15 mg IV NOW ONE Stop: 09/27/22 18:22 Last Admin: 09/27/22 18:54 Dose: 15 mg Documented By: JANE Ondansetron HCl (Ondansetron 4 Mg Odt) 4 mg PO NOW PRN PRN Reason: Nausea And Vomiting Ondansetron HCl (Ondansetron 4 Mg/2 Ml Inj) 4 mg IV NOW PRN PRN Reason: Nausea And Vomiting Pantoprazole Sodium (Pantoprazole 40 Mg Vial) 20 mg IV NOW ONE Stop: 09/27/22 18:22 Last Admin: 09/27/22 18:54 Dose: Not Given Documented By: JANE Vital Signs Vital signs: Vital Signs - 8 hr 09/27/22 14:29 09/27/22 19:49 Temperature 97.4 F L 98.6 F Pulse Rate 80 Respiratory Rate 18 Blood Pressure 138/86 Pulse Oximetry 97 Oxygen Delivery Method Room Air MDM - Abdominal Pain <TRI Huang - Last Filed: 09/27/22 19:56> Lab Data 09/27/22 15:04 09/27/22 15:04 Labs: Lab Results 09/27/22 09/27/22 09/27/22 Range/Units 15:04 15:04 15:04 WBC 5.5 (4.5-11.0) X10^3/uL RBC 4.04 (4.0-5.2) X10^6/uL Hgb 12.7 (12.0-16.0) g/dL Hct 37.9 (36-46) % MCV 93.9 (80-100) fL MCH 31.4 (26-34) PG MCHC 33.5 (30-36) % RDW 13.3 (11.6-14.8) % Plt Count 262 (150-400) X10^3/uL Neut % (Auto) 54.4 (50-75) % Lymph % (Auto) 32.2 (25-40) % [place] % (Auto) 9.2 (3-14) % Eos % (Auto) 3.0 (2-4) % Baso % (Auto) 1.2 (0-2) % Neut # (Auto) 3000 (0191-6251) /uL Lymph # (Auto) 1800 (6859-5032) /uL [place] # (Auto) 500 (0-900) /uL Eos # (Auto) 200 (0-450) /uL Baso # (Auto) 100 (0-100) /uL Sodium 137 (137-145) mmol/L Potassium 4.1 (3.4-5.1) mmol/L Chloride 104 (98-107) mmol/L Carbon Dioxide 23 (22-32) mmol/L BUN 7 (7-17) mg/dL Creatinine 0.51 L (0.52-1.04) mg/dL Estimated GFR > 60 (>60) mL/min BUN/Creatinine Ratio 13.7 (6-22) Glucose 80 (70-100) mg/dL Calcium 8.6 (8.4-10.2) mg/dL Total Bilirubin 0.7 (0.2-1.3) mg/dL AST 23 (14-36) IU/L ALT 30 (<35) IU/L Alkaline Phosphatase 102 (38-126) U/L C-Reactive Protein 1.6 H (<1.0) mg/dL Total Protein 7.2 (6.3-8.2) g/dL Albumin 4.0 (3.5-5.0) g/dL Globulin 3.2 (1.7-4.1) g/dL Albumin/Globulin Ratio 1.3 (1.0-2.8) Lipase 28 (23-300) U/L Point of care testing: Urine Dip Bedside Urine Glucose Negative Bedside Urine Bilirubin - Negative Bedside Urine Ketone - Negative Urine Specific [place] 1.010 Bedside Urine Occult Blood - Negative Bedside Urine pH 6.5 Bedside Urine Protein - Negative Bedside Urine Urobilinogen - Negative Bedside Urine Nitrite - Negative Bedside Urine Leukocytes - Negative Esterase Imaging Data CT scan - abdomen/pelvis: Radiologist's Impression: PROCEDURE:? CT ABDOMEN PELVIS W CON ? INDICATIONS:? Right upper quadrant tenderness concerning for anselmo w/sx ? TECHNIQUE:? After the administration of intravenous contrast, axial sections acquired from the lung bases to the pubic symphysis.? Coronal and sagittal reformats were performed.? For radiation dose reduction, the following was used:? automated exposure control, adjustment of mA and/or kV according to patient size.? ? COMPARISON:? [facility], , US ABDOMEN LIMITED, 09/27/2022, 15:20. ? FINDINGS:? Image quality:? Excellent.? ? Lung bases:? Unremarkable. Heart:? No significant findings. ? ABDOMEN: Liver:? Unremarkable.? ? Gallbladder:? Unremarkable.? ? Biliary ducts:? Unremarkable.? ? Pancreas:? Unremarkable.? ? Spleen:? Unremarkable.? ? Adrenal Glands:? Unremarkable.? ? Kidneys and Ureters:? Unremarkable.? ? ? Stomach and Bowel:? Stomach, small bowel loops, and colon are unremarkable.? Peritoneum:? No abnormal intraperitoneal fluid.? No free air.? ? Ventral Wall: ? No hernias.? Abdominal Nodes:? No retroperitoneal or mesenteric adenopathy by size criteria.? Vessels:? Aorta and inferior vena cava are normal in size.? ? PELVIS: Pelvic Organs:? Unremarkable.? ? Bladder:? Unremarkable.? ? Pelvic Nodes: No enlarged lymph nodes.? Miscellaneous: No hernias are seen. ? ? ? Bones:? Unremarkable.? IMPRESSION:? No evidence acute abdominal process. ? ? Dictated by: Ghassan Smith M.D. on 09/27/2022 at 18:50 ? ? Approved by: Ghassan Smith M.D. on 09/27/2022 at 18:52 ? US - abdomen: Radiologist's Impression: PROCEDURE:? US ABDOMEN LIMITED ? INDICATIONS:? RUQ pain, r/o anselmo ? TECHNIQUE:? Real-time scanning was performed of the abdominal and retroperitoneal organs, with image documentation.? ? COMPARISON:? None. ? FINDINGS: ? Liver:? Hepatic parenchyma shows diffuse increased echogenicity consistent with fatty infiltration. ? Gallbladder:? Sonolucent without cholelithiasis.? No gallbladder wall thickening. No pericholecystic fluid or Caro's sign. ? Common Bile Duct:? 5.5 mm. ? Pancreas:? Unremarkable as visualized ? ? IMPRESSION: ? 1. Hepatic fatty infiltration without focal mass lesion ? Approved by: Adama Mccallum M.D. on 09/27/2022 at 14:45? [facility] Narrative Medical decision making narrative: Chief Complaint: Right upper quadrant tenderness with right posterior shoulder pain Independent historian: Patient Differential diagnoses include but are not limited to: Coli lithiasis/cholecystitis/cholangitis or choledocholithiasis, gastroenteritis, GERD, bowel obstruction, perforated viscus, appendicitis, colitis, diverticulitis, IBD/IBS, intestinal ischemia, obstructive uropathy, lumbar radiculopathy, acute cystitis, pyelonephritis, acute hepatitis, mesenteric ischemia, uterine fibroids, ACS. I have independently reviewed the patient's vital signs and nursing notes as well as prior records if available. Pertinent lab findings reviewed: Patient's lab work overall is unremarkable, no leukocytosis or anemia no electrolyte abnormalities or elevated liver enzymes, CRP is mildly elevated at 1.6, normal creatinine Pertinent Imaging reviewed: Right upper quadrant ultrasound is negative for col i lithiasis/gallbladder wall thickening or pericholecystic fluid. CBD measures 5.5 mm and ultrasound shows hepatic fatty infiltration without focal mass or lesion. CT abdomen and pelvis is negative for acute abnormality. Patient is p.o. tolerant, without fever, chills or abnormal vital signs, Doubt atypical ACS. No peritoneal signs on abdominal exam. Patient remains p.o. tolerant. Serial abdominal exam without increase in abdominal pain. Extensive conversation about ER return precautions and need for close follow-up. Social considerations that may affect disposition: none Questions are addressed and there is agreement with the plan and for follow-up. Patient is appropriate for outpatient management. MIPS: This encounter doesn't have any diagnosis' associated with MIPS criteria. <Mile Osborn, DO - Last Filed: 10/05/22 08:25> Lab Data Labs: Lab Results 09/27/22 09/27/22 09/27/22 Range/Units 15:04 15:04 15:04 WBC 5.5 (4.5-11.0) X10^3/uL RBC 4.04 (4.0-5.2) X10^6/uL Hgb 12.7 (12.0-16.0) g/dL Hct 37.9 (36-46) % MCV 93.9 (80-100) fL MCH 31.4 (26-34) PG MCHC 33.5 (30-36) % RDW 13.3 (11.6-14.8) % Plt Count 262 (150-400) X10^3/uL Neut % (Auto) 54.4 (50-75) % Lymph % (Auto) 32.2 (25-40) % [place] % (Auto) 9.2 (3-14) % Eos % (Auto) 3.0 (2-4) % Baso % (Auto) 1.2 (0-2) % Neut # (Auto) 3000 (9034-3063) /uL Lymph # (Auto) 1800 (6664-9079) /uL [place] # (Auto) 500 (0-900) /uL Eos # (Auto) 200 (0-450) /uL Baso # (Auto) 100 (0-100) /uL Sodium 137 (137-145) mmol/L Potassium 4.1 (3.4-5.1) mmol/L Chloride 104 (98-107) mmol/L Carbon Dioxide 23 (22-32) mmol/L BUN 7 (7-17) mg/dL Creatinine 0.51 L (0.52-1.04) mg/dL Estimated GFR > 60 (>60) mL/min BUN/Creatinine Ratio 13.7 (6-22) Glucose 80 (70-100) mg/dL Calcium 8.6 (8.4-10.2) mg/dL Total Bilirubin 0.7 (0.2-1.3) mg/dL AST 23 (14-36) IU/L ALT 30 (<35) IU/L Alkaline Phosphatase 102 (38-126) U/L C-Reactive Protein 1.6 H (<1.0) mg/dL Total Protein 7.2 (6.3-8.2) g/dL Albumin 4.0 (3.5-5.0) g/dL Globulin 3.2 (1.7-4.1) g/dL Albumin/Globulin Ratio 1.3 (1.0-2.8) Lipase 28 (23-300) U/L Point of care testing: Urine Dip Bedside Urine Glucose Negative Bedside Urine Bilirubin - Negative Bedside Urine Ketone - Negative Urine Specific [place] 1.010 Bedside Urine Occult Blood - Negative Bedside Urine pH 6.5 Bedside Urine Protein - Negative Bedside Urine Urobilinogen - Negative Bedside Urine Nitrite - Negative Bedside Urine Leukocytes - Negative Esterase Discharge Plan Departure Patient Disposition: Home Clinical Impression: Abdominal pain Qualifiers: Abdominal location: right upper quadrant Qualified Code(s): R10.11 - Right upper quadrant pain Instructions: GERD Diet, Low FODMAP Diet Activity Restrictions/Additional Instructions: *You have been diagnosed with a normal abdominal ultrasound of your gallbladder showing normal common bile duct that is not dilated, hepatic fatty infiltration, this is common in a lot of people (most). Your abdomen CT does not show an acute problem, shows that the gallbladder and appendix are unremarkable, no free fluid, air or evidence of inflammation. Maybe you saw your gallstone problem already. Please stay hydrated, eat a diet low in fat and continue taking omeprazole if you have reflux symptoms. You may try a FODMAP diet to see if this helps. Stay hydrated, return for new or worsening symptoms. No evidence of infection, no elevation of her white blood cell count or liver enzymes. You may have dehydration related to some GI distress. I hope you feel better soon, it was a pleasure to meet you, use Zofran as needed for nausea and return for new or worsening conditions. *What to do: *Please continue to take your regular medications as directed. [x ] New medication prescriptions sent to your pharmacy: [[facility]] [ ] New medication written as a paper prescription [ ] No new medications given *Please follow up with your primary care provider in 2-3 days, call for an a ppointment. Let them know you were seen in the Emergency Department and that we asked that you be seen for follow-up. We will electronically transmit a record of today's note if your PCP is in our system *If you do not have a primary care provider please contact [phone] to establish care with one of the [facility] primary care providers. *Return to Emergency Department if you should have any new, worsening, or concerning symptoms, such as [fever greater than 101F, chills, worsening pain, persistent vomiting or other bothersome symptoms]. Prescriptions: New ondansetron 4 mg tablet,disintegrating 4 mg PO Q8H PRN (Reason: nausea and vomiting) Qty: 10 0RF No Action CHOLECALCIFEROL (VITAMIN D3) (Vitamin D3) 1,000 mg PO DAILY Qty: 0 Esomeprazole Magnesium (Nexium) 40 mg PO Q DAY Qty: 0 [MYLANTA] 30 ml PO DAILY PRN (Reason: Indigestion) Qty: 0 acetaminophen [Tylenol] 325 mg Tablet 325 mg PO DAILY PRN (Reason: Pain) Excedrin Extra Strength 250-250-65 mg Tablet 1 tab PO DAILY furosemide [Lasix] 20 mg tablet 20 mg PO DAILY Qty: 14 0RF Referrals: Azam Taylor DO [Primary Care Provider] - Stand Alone Forms: Patient Portal/API <Mile Osborn DO - Last Filed: 10/05/22 08:25> Cosign ED Attending Timature Attestation: I was immediately available in the department for consultation. Documentation has been reviewed.
[2022-09-27 18:40] LABS: C-Reactive Protein Quant 1.6 mg/dL (<1.0)
[2022-09-27] MEDS: HYDROMORPHONE 0.5 MG INJ IV (18:54)
[2022-09-27] MEDS: KETOROLAC 30 MG/ML VIAL 15 MG IV (18:54)
[2022-09-27 19:49] VITALS: TEMP 37
[2022-09-27 19:50] VITALS: BP 140/76; PULSE 78; RESP 16; TEMP 37; O2SAT 97
== END 2022-09-27 19:45 | disposition home or self-care (01) ==
PROVIDERS: Emergency Medicine; Emergency Provider Nurse Practitioner Critical Care Medicine; PCP Student in an Organized Health Care Education/Training Program
DX: R10.11 Right upper quadrant pain (principal)
CPT/HCPCS: 36415; 74177; 76705; 80053; 81003; 83690; 85025; 86140; 93005; 96374; 96375; 99284; J1170; J1885; Q9967

== ENCOUNTER → 2023-01-08 15:50 | Outpatient (CLI) | payer OTHER, SELFPAY ==
--- NOTE | 2023-01-08 15:56 | DI.RAD.S_ITS ---
PROCEDURE: XR CERVICAL SPINE 2V OR 3V INDICATIONS: Neck pain TECHNIQUE: 3 view(s) of the cervical spine were acquired. COMPARISON: None. FINDINGS: Bones: No fractures or dislocations to the T1 level. The lateral masses of C1 appear intact on the odontoid view. No suspicious bony lesions. Mild cervical spondylosis. Mild disc height loss and uncovertebral joint prominence C4-C5 and C5-C6. Soft tissues: No prevertebral soft tissue swelling. IMPRESSION: Mild cervical spondylitic change. Dictated by: Ghassan Smith M.D. on 01/08/2023 at 17:03 Approved by: Ghassan Smith M.D. on 01/08/2023 at 17:04
== END ==
PROVIDERS: PCP Student in an Organized Health Care Education/Training Program; Referring Provider Neurological Surgery; Visit Provider Neurological Surgery
DX: M47.22 Other spondylosis with radiculopathy, cervical region (principal); M48.02 Spinal stenosis, cervical region; M54.2 Cervicalgia; G95.9 Disease of spinal cord, unspecified
CPT/HCPCS: 72040